=== PATIENT | female | born 1995 | race Two or more races ===

== ENCOUNTER 2018-11-02 17:12 | Emergency (ER) | payer SELFPAY ==
[~2018-11-02] VITALS: Ht 167.6 cm; Wt 68.0 kg
[2018-11-02] MEDS ORDERED: PREDNISONE20 MG ORAL ×2 (17:25→18:47)
[2018-11-02] MEDS ORDERED: ALBUTEROL2.5 MG/3 M INH (17:25)
[2018-11-02] MEDS ORDERED: Albuterol/Ipratropium 3ml neb HHN ONE (17:30)
[2018-11-02] MEDS: Albuterol/Ipratropium 3ml neb HHN SCH ×4 (17:53→18:45)
[2018-11-02 18:00] VITALS: BP 118/83
[2018-11-02] MEDS ORDERED: ALBUTEROL SULF8.5 GM INH (18:47)
[2018-11-02 18:51] VITALS: BP 117/79
[2018-11-02 18:54] VITALS: BP 117/79
--- NOTE | 2018-11-02 19:02 | Diagnostic Imaging Report ---
History: SOB Exam: XR CXR 1 VIEW Comparison: None available FINDINGS: The lungs are clear. The cardiac and mediastinal contours are within limits. The visualized osseous structures appear within limits. IMPRESSION: No evidence of acute disease.
--- NOTE | 2018-11-02 20:01 | Emergency Room Report ---
History of Present Illness General Chief Complaint: Asthma Source: Patient Present Illness HPI Patient is 23-year-old female presented after increased cough and difficulty breathing. Patient had gradual onset of symptoms acute onset of symptoms over this morning. Patient reports a prior history of asthma and is currently taking steroids as well as steroid inhaler in addition to albuterol. She had multiple similar episodes in the past. Patient had been taking naproxen 5 mg of oral prednisone. She denies any fever. She had been having increased cough. Patient is a she smoker. Denies any leg pain or swelling. Allergies: Coded Allergies: No Known Allergies (Unverified , 11/02/18) Patient History Past Medical History: see triage record Reviewed Nursing Documentation: PMH: Agreed; PSxH: Agreed Nursing Documentation-PMH Past Medical History: No History, Except For Hx Asthma: Yes Review of Systems All Other Systems: negative except mentioned in HPI Physical Exam Vital Signs Date Time Temp Pulse Resp B/P (MAP) Pulse Ox O2 Delivery O2 Flow Rate FiO2 11/02/18 17:20 89 24 100 Nasal Cannula 2.0 28 11/02/18 17:21 98.1 118/83 Sp02 EP Interpretation: reviewed, normal General Appearance: normal inspection, alert, GCS 15, moderate distress Head: atraumatic ENT: normal ENT inspection, hearing grossly normal, normal voice Neck: normal inspection, full range of motion, supple, no bony tend Respiratory: normal inspection, no retraction, accessory muscle use, wheezing Cardiovascular #1: regular rate, rhythm, no edema Gastrointestinal: normal inspection, normal bowel sounds, non tender, soft, no guarding, no hernia Genitourinary: no CVA tenderness Musculoskeletal: normal inspection, back normal, normal range of motion Neurologic: normal inspection, alert, oriented x3, responsive, addiction counselor III-XII nml as tested, speech normal Psychiatric: normal inspection, judgement/insight normal, mood/affect normal Skin: normal inspection, normal color, no rash Medical Decision Making Diagnostic Impression: Primary Impression: Asthma attack ER Course Patient present for shortness of breath. Differential diagnosis included but was not limited to bronchitis, pneumonia, pulmonary embolism, pericarditis, asthma exacerbation, foreign body. Patient is given nebulized albuterol with improvement. Patient was given steroids. Repeat lung exam showed improved breath sounds.Patient is noted to have marked improvement. Chest x-ray 1 view read by radiology showed no acute infiltrate with normal cardiac size. Patient' s test was negative. Patient was advised smoking cessation. Patient given prescription for oral steroids as well as albuterol. She is advised to return if any worsening of condition or other concerns. Labs Test 11/02/18 17:50 Urine HCG, Qualitative Negative (NEGATIVE) Urine Opiates Screen Negative (NEGATIVE) Urine Barbiturates Screen Negative (NEGATIVE) Phencyclidine (PCP) Screen Negative (NEGATIVE) Urine Amphetamines Screen Negative (NEGATIVE) Urine Benzodiazepines Screen Negative (NEGATIVE) Urine Cocaine Screen Negative (NEGATIVE) Urine Marijuana (THC) Screen Positive (NEGATIVE) Last Vital Signs Date Time Temp Pulse Resp B/P (MAP) Pulse Ox O2 Delivery O2 Flow Rate FiO2 11/02/18 18:54 98.1 70 18 117/79 98 Room Air 2.0 28 Status: improved Disposition: HOME, SELF-CARE Condition: Stable Scripts Prednisone* (PREDNISONE*) 20 Mg Tablet 60 MG ORAL DAILY, #12 TAB Prov: Rebel Eldridge MD 11/02/18 Albuterol Sulfate* (ALBUTEROL SULFATE MDI*) 8.5 Gm Hfa.aer.ad 2 PUFF INH Q6H, #1 EA 0 Refills Prov: Rebel Eldridge MD 11/02/18 Patient Instructions: Asthma, Adult Rebel Eldridge MD Nov 02, 2018 20:01
== END 2018-11-02 18:55 | disposition home or self-care (01) ==
LOC: EMR 17:26
DX: J45.901 Unspecified asthma with (acute) exacerbation (principal); R05 Cough; Z79.52 Long term (current) use of systemic steroids
CPT/HCPCS: 71045; 80307; 81025; 94640; 94664; 99284; J7512; J7620